=== PATIENT | male | born 1985 | race Caucasian/White ===

== ENCOUNTER → 2019-04-08 13:00 | Outpatient (CLI) | payer BC, SELFPAY ==
[2019-04-08 13:37] LABS: Basophils # 0.1 K/mm3 (0-0.2); Basophils % 1.2 % (0.1-2.0); Eosinophils # 0.2 K/mm3 (0.0-0.4); Eosinophils % 1.8 % (0.1-12.0); Hematocrit 49.8 % (42.0-52.0); Hemoglobin 15.8 g/dL (14.1-18.0); Lymphocytes % 28.8 % (10-50); Mean Corpuscular HGB Conc 31.7 g/dL (31.8-35.4); Mean Corpuscular Hemoglobin 28.1 pg (27.0-31.2); Mean Corpuscular Volume 88.6 fl (80-94); Mean Platelet Volume 6.6 fl (7.4-10.4); Monocytes # 0.7 K/mm3 (0.1-1.0); Monocytes % 6.3 % (1.7-9.3); Neutrophils # 6.4 K/mm3 (1.8-7.8); Neutrophils % 61.9 % (37.0-80.0); Platelet Count 403 K/mm3 (142-424); Red Blood Count 5.62 M/mm3 (4.60-6.20); Red Cell Distribution Width 14.6 % (11.5-17.5); White Blood Count 10.4 K/mm3 (4.8-10.8)
[2019-04-08 14:36] LABS: Alanine Aminotransferase 17 U/L (12-78); Albumin Level 3.9 gm/dL (3.4-5.0); Albumin/Globulin Ratio 1.4 (1.1-1.8); Alkaline Phosphatase 75 U/L (46-116); Anion Gap 16.1 mEq/L (5-15); Aspartate Amino Transferase 8 U/L (15-37); Bilirubin,Total 0.3 mg/dL (0.2-1.0); Blood Urea Nitrogen 8 mg/dL (7-18); Calcium 8.6 mg/dL (8.5-10.1); Carbon Dioxide 22 mmol/L (21.0-32.0); Chloride 101 mmol/L (98-107); Chol/HDL Ratio 2.4 (1-3.5); Cholesterol 127 mg/dL (140-200); Creatinine,Serum 0.69 mg/dL (0.70-1.30); Estimated Glomerular Filt Rate 130 ml/min (>60); Free T4 (Free Thyroxine) 0.94 ng/dl (0.76-1.46); GFR (African American) 157 ML/MIN (>60); Globulin 2.8 gm/dl (1.3-3.2); Glucose 102 mg/dL (74-106); HDL Cholesterol 54 mg/dL (27-67); LDL Cholesterol 59 mg/dL (0-130); Potassium 4.1 mmoL/L (3.5-5.1); Sodium 135 mmol/L (136-145); Thyroid Stimulating Hormone 0.95 uIU/ml (0.358-3.740); Total Protein,Serum 6.7 gm/dL (6.4-8.2); Triglycerides 72 mg/dL (30-200); VLDL Cholesterol 14 mg/dL (0-40)
[2019-04-08 14:39] LABS: Hemoglobin A1C 5.5 % (0.0-7.0)
[2019-04-09 11:43] LABS: Vitamin B12 174 pg/mL (232-1245); Vitamin D 25 Hydroxy 32.1 ng/mL (30.0-100.0)
[2019-04-09 20:21] LABS: Folate 6.6 ng/mL (>3.0); Triiodothyronine (T3) Free 3.4 pg/mL (2.0-4.4)
== END ==
PROVIDERS: Visit Provider Psychiatry & Neurology Psychiatry
DX: F31.9 Bipolar disorder, unspecified (principal); Z79.899 Other long term (current) drug therapy; Z51.81 Encounter for therapeutic drug level monitoring
CPT/HCPCS: 36415; 80053; 80061; 82607; 82652; 82746; 83036; 84439; 84443; 84481; 85025

== ENCOUNTER 2020-01-20 16:05 | Emergency (ER) | payer BC, SELFPAY ==
[2020-01-20 16:19] VITALS: BP 126/81; PULSE 81; RESP 18; TEMP 36.7; O2SAT 99; BMI 23.3
[2020-01-20 16:26] LABS: UTC Strep Screen (Rapid) Negative (Negative)
--- NOTE | 2020-01-20 16:32 | HMH.EDUTC ---
[facility] [place] Impression: Upper respiratory infection Qualifiers: URI type: unspecified URI Qualified Code(s): J06.9 - Acute upper respiratory infection, unspecified Disposition: Home, Self-Care Condition on Discharge: Good Instructions: Sore Throat, DI for Ear Pain-Adult, Preventing the Spread of Coronavirus Discharge Instructions Additional Instructions: *Monitor Temp, Over the counter Motrin or Tylenol as directed/as needed Tylenol every 4 hours and Motrin every 6 hours (as long as your family doctor has told you that you can take it) for fever or pain. and straight to ER if unable to lower temp less than 101.0 after medication given *Warm salt water gargles may help to soothe the throat *Throat Lozenges *Warm fluids like tea with honey may help to soothe the throat *Sleep elevated *Humidifier/Vaporizer *Flonase 2 sprays in each nostril daily but be aware that it may take 2-3 days before you notice improvement You was tested for COVID, you was given handout with instructions for Self Quarantine and Self isolation, make sure that you follow those instructions well to help prevent the spread of COVID Call back to the [facility] [place] in 48 hours to see if your test results are back, call on to see if they are back and if not you may call everyday after to see if they are back Your throat swab was sent for culture. Those results are typically sent to your primary care. Be sure to follow up in 2-3 days with your family doctor/primary care physician if no improvement so they can review those result and treat if necessary. If you don?t have a primary care doctor, I recommend you get one but in the mean time, you will have to return to a walk in clinic Follow up IMMEDIATELY for new or worsening symptoms or no Noticeable improvement over the next 48-72 hours. 911 for difficulty breathing or swallowing Prescriptions: Azithromycin [Z-Nathaniel 250mg Tab] 250 mg PO DIRECTED #6 tab Transmission Status: Pending to [facility] Referrals: Donte Aguilar [Primary Care Provider] - As needed Time of Disposition: 17:41 Medical Decision Making - Aidan Inquiry Pt receiving controlled substance: No Aidan was queried for this patient: No Vital Signs: 01/20/20 16:19 Temperature 98.1 F Temperature Source Oral Pulse Rate [Left Brachial] 81 Respiratory Rate 18 Blood Pressure [Left Arm] 126/81 Blood Pressure Mean [Left Arm] 96 Blood Pressure Source [Left Arm] Automatic Cuff Blood Pressure Position [Left Arm] Sitting 02 Sat by Pulse Oximetry 99 Oxygen Delivery Method Room Air - Lab Data Lab results reviewed: Yes: I reviewed the patient's lab results. Lab Results 01/20/20 16:18: Strep Scn Rapid Clinic Negative Orders (Tests/Meds): ED MEDICATIONS Discontinued Medications Generic Name Dose Route Start Last Admin Trade Name Dylan PRN Reason Stop Dose Admin Methylprednisolone Sodium Succinate 125 mg 01/20/20 17:06 01/20/20 17:10 Solu-Medrol 125mg/2ml Vial IM 01/20/20 17:07 125 mg ONCE ONE Administration ORDERS Category Date Time Status Monoscreen (Rapid) Stat Lab 01/20/20 17:00 Received SARS-CoV-2, ARYA Stat Lab 01/20/20 16:50 Received Strep Screen Confirmation Stat Micro 01/20/20 16:18 Received - Reevaluation(s) Time: 17:21 Reevaluation #1: Still awaiting lab mono test results [facility] [place] - General Stated complaint: Swollen throat Time Seen by Provider: 01/20/20 16:32 Mode of Arrival: Ambulatory Source of Information: Patient Limitations: No Limitations Description of Symptoms (Recalled from Triage Doc. by RN): PATIENT C/O PAIN AND SWELLING TO THROAT SINCE SUNDAY. DENIES FEVER OR ANY SICK CONTACTS HEENT Symptoms (Recalled from RN notes): Yes Resp Symptoms (Recalled from RN notes): No Skin Symptoms (Recalled from RN notes): No MS Symptoms (Recalled from RN notes): No Functional Status (Recalled from RN notes): WNL - History of Present Illness Provider Complaint: Patient s
[2020-01-20 17:40] VITALS: BP 126/81; PULSE 81; RESP 18; TEMP 36.7; O2SAT 99
[2020-01-20 17:41] LABS: Monoscreen (Rapid) Negative (Negative)
[2020-01-22 06:41] LABS: Covid-19 Nasal PCR Sendout Lex NOT DETECTED
== END 2020-01-20 17:45 | disposition home or self-care (01) ==
PROVIDERS: Emergency Provider Nurse Practitioner; PCP Family Medicine
DX: J06.9 Acute upper respiratory infection, unspecified (principal); F17.210 Nicotine dependence, cigarettes, uncomplicated
CPT/HCPCS: 86318; 87880; 96372; 99203; U0004

== ENCOUNTER 2020-01-22 16:09 | Emergency (ER) | payer BC, SELFPAY ==
[2020-01-22 16:12] VITALS: BP 110/71; PULSE 94; RESP 18; TEMP 36.7; O2SAT 97; BMI 23.3
--- NOTE | 2020-01-22 17:05 | CT_ITS ---
PROCEDURE: CT SOFT TISSUE NECK W CON CLINICAL HISTORY: sore throat, swelling on left, difficult swallow Difficulty swallowing, sore throat, left-sided of the neck COMPARISON: No exams were available for comparison TECHNIQUE: Oral Contrast: 75ml Optiray 350 IV Contrast: None Axial images obtained with sagittal and coronal reformats. All CT scans at the facility use one or more dose reduction, viz: automated exposure control, ma/kV adjustment per patient size (including targeted exams where dose is matched to indication, i.e. head), or iterative reconstruction technique. FINDINGS: Mild prominence of the nasopharyngeal mucosa. Asymmetric soft tissue swelling is present in the left parapharyngeal region with a ring-enhancing area of decreased attenuation involving the left palatine tonsil consistent with an abscess with generalized soft tissue swelling in the left parapharyngeal area. Fluid density is present in the left the loculate region and may be due to retained secretions. There is some edema of the left area epiglottic fold. The glottic region has an unremarkable appearance. The epiglottis is thickened on the left. The fluid density in the left vallecular region could also be due to a collection such as an abscess. There are mildly prominent cervical lymph nodes bilaterally left more so than right. Paraseptal emphysematous changes noted in the lung apices with scarring and some mild mosaic attenuation of the upper lobes. IMPRESSION: 1. 12 mm left para tonsillar abscess. 2. Generalized soft tissue swelling of the left parapharyngeal region and nasopharyngeal area. Fluid density is present in the left the lacunar region and could be due to retained secretions or an additional abscess. The suggest follow-up to confirm resolution. 3. Mild thickening of the left-sided the epiglottis contiguous with the fluid in the left vallecular area Dictated by: Krishna Catherine MD 01/23/2020 08:21 Electronically signed by Krishna Catherine MD in [place] 01/23/2020 08:21
--- NOTE | 2020-01-22 17:06 | HMH.EDGENADL ---
ED Disposition Clinical Impression: Peritonsillar abscess Pharyngitis Qualifiers: Pharyngitis/tonsillitis etiology: streptococcus Qualified Code(s): J02.0 - Streptococcal pharyngitis Disposition: Home, Self-Care Condition on Discharge: Fair Instructions: DI for Peritonsillar Abscess -- Adult Additional Instructions: You have been evaluated for sore throat, diagnosed with a peritonsillar abscess. Please take Augmentin as prescribed. Tylenol and ibuprofen for pain. Follow-up with Dr. Isaacs in the ENT clinic on Sunday at 12:30 PM. If you have persistent pain and difficulty swallowing, return to the emergency department tomorrow morning and you may be able to be fit into the afternoon surgery schedule. Return to the emergency department if you have shortness of breath, difficulty swallowing, other concerns. Prescriptions: Amoxicillin/Potassium Clav [Augmentin 500mg tab] 1 tab PO TID 5 Days #15 tab Transmission Status: Received by [facility] Referrals: Donte Aguilar [Primary Care Provider] - Time of Disposition: 18:30 - Critical Care Critical Care Time: No Attestation: On 01/22/20, the high probability of a clinically significant, sudden or life threatening deterioration of the following system(s) required my full and direct attention, intervention and personal management. The time I documented below is in addition to time spent performing reported procedures but includes the following listed in this critical care notation. Medical Decision Making - Medical Records Medical records reviewed: Yes: I reviewed the patient's medical records. - Aidan Inquiry Pt receiving controlled substance: No Vital Signs: 01/22/20 16:12 01/22/20 18:59 Temperature 98.1 F 98 F Temperature Source Oral Oral Pulse Rate 74 Pulse Rate [Right] 94 H Respiratory Rate 18 18 Blood Pressure 135/74 Blood Pressure [Right Arm] 110/71 Blood Pressure Mean [Right Arm] 84 Blood Pressure Position Sitting 02 Sat by Pulse Oximetry 97 Oxygen Delivery Method Room Air - Lab Data Lab Results 01/22/20 16:26: Group A Strep Rapid Positive A Orders (Tests/Meds): ED MEDICATIONS Discontinued Medications Generic Name Dose Route Start Last Admin Trade Name Freq PRN Reason Stop Dose Admin Hydrocodone Bitart/Acetaminophen 1 tab 01/22/20 18:42 01/22/20 18:43 [place] 5/325mg Tablet PO 01/22/20 18:43 1 tab ONCE ONE Administration Amoxicillin/Clavulanate Potassium 1 each 01/22/20 18:20 01/22/20 18:37 Augmentin 500mg Tablet PO 01/22/20 18:21 1 each ONCE ONE Administration Protocol Ioversol 75 ml 01/22/20 17:44 01/22/20 17:45 Rad-Optiray 350 100ml Vial IV 01/22/20 17:45 75 ml ONCE ONE Administration Protocol Methylprednisolone Sodium Succinate 125 mg 01/22/20 18:18 01/22/20 18:37 Solu-Medrol 125mg/2ml Vial IV 01/22/20 18:19 125 mg ONCE ONE Administration Penicillin G Benzathine 1,200,000 unit 01/22/20 18:27 01/22/20 18:37 Bicillin La 1,200,000 Units/2ml Syringe IM 01/22/20 18:28 1,200,000 unit ONCE ONE Administration Protocol Sodium Chloride 10 ml 01/22/20 17:44 01/22/20 17:45 Rad-Saline Flush 10ml Syringe IV 01/22/20 17:45 10 ml ONCE ONE Administration ORDERS Category Date Time Status CT soft tissue neck w con Stat Cat Scan 01/22/20 17:05 Taken Medical Decision Narrative: In summary this is a 35-year-old male presenting to the emergency department with sore throat. He does appear to have asymmetric swelling of the left side compared to the right. Differential diagnoses include strep pharyngitis, peritonsillar abscess, deep space infection. Will obtain CT soft tissue of the neck and reassess. Will obtain rapid strep. Strep positive. Patient given 1,200,000 units of Bicillin intramuscularly. CT scan of the neck shows a 12 mm left-sided tonsillar abscess. Patient is able to swallow and manage his secretions. I consulted Dr. Thomas
[2020-01-22 17:19] LABS: Strep Scrn Group A (Rapid) Positive (Negative)
[2020-01-22 18:59] VITALS: BP 135/74; PULSE 74; RESP 18; TEMP 36.6; O2SAT 98
== END 2020-01-22 19:00 | disposition home or self-care (01) ==
PROVIDERS: Emergency Provider Emergency Medicine; PCP Family Medicine
DX: J36 Peritonsillar abscess (principal); J02.0 Streptococcal pharyngitis
CPT/HCPCS: 70491; 87430; 96372; 96374; 99282; J0561; Q9967